=== PATIENT | female | born 1985 | race Hispanic/Latino ===

== ENCOUNTER 2022-06-08 09:24 | Outpatient (CLI) | payer OTHER | END 2022-06-08 09:25 | disposition home or self-care (01) | LOC: BICULT 09:24 → EDSTATUS 10:15 | PROVIDERS: ATTEND Advanced Practice Midwife | DX: Z34.92 Encounter for supervision of normal pregnancy, unspecified, second trimester (principal); Z3A.21 21 weeks gestation of pregnancy | CPT/HCPCS: 76805 ==